=== PATIENT | male | born 1955 | race Caucasian/White ===

== ENCOUNTER 2016-05-13 22:29 | Emergency (ER) | payer MEDICAID ==
[~2016-05-13] VITALS: Ht 172.7 cm; Wt 113.4 kg
[~2016-05-13 22:29] MED LIST: ALBU4TAB4; AZIT250T
[2016-05-13 22:30] VITALS: BP 161/97; PULSE 85; RESP 18; TEMP 97.5; O2SAT 98
--- NOTE | 2016-05-13 22:50 | NUR ---
Pt ambulatory to bed 8. Report given to SUHAS Dobbs.
--- NOTE | 2016-05-13 23:00 | NUR ---
Pt states that he has not been able to urinate for three hours. Pt has 10/10 abd pain with guarding. Will continue to monitor. No distress noted.
--- NOTE | 2016-05-13 23:00 | NUR ---
ER Dr. Patino at bedside examining patient.
--- NOTE | 2016-05-13 23:20 | NUR ---
# 16 FR roman catheter with use of sterile technique. Immediate return of 300 ml yellow urine noted. Urine sample collected and sent to lab. Pt tolerated procedure well.
[2016-05-13 23:29] LABS: BILIRUBIN,URINE NEGATIVE (NEGATIVE); BLOOD, URINE 1+ (NEGATIVE); CLARITY/URINE HAZY (CLEAR); COLOR,URINE YELLOW (YELLOW); GLUCOSE,URINE NEGATIVE (NEGATIVE); KETONES,URINE NEGATIVE (NEGATIVE); LEUKOCYTE ESTERASE ,URINE 2+ (NEGATIVE); NITRITE, URINE NEGATIVE (NEGATIVE); PROTEIN URINE NEGATIVE (NEGATIVE); UROBILINOGEN,URINE 0.2 (0.2-1.0)
[2016-05-13 23:52] LABS: BACTERIA,URINE FEW /HPF (None Seen); MUCUS,URINE None Seen /LPF (None Seen); WBC,URINE 20-50 /HPF (0-3)
[2016-05-13 23:54] LABS: YEAST,URINE Few /HPF (None Seen)
[2016-05-14] MEDS ORDERED: NITROFURANTOIN MONOHYD/M-CRYST 100 MG CAPSULE PO SCH (00:15)
[2016-05-14 00:44] VITALS: BP 140/97; PULSE 70; RESP 18; TEMP 97.5; O2SAT 98
--- NOTE | 2016-05-14 00:44 | NUR ---
Patient given written and verbal discharge instructions and verbalizes understanding. ER MD discussed with patient the results and treatment provided. Patient in stable condition. ID arm band removed. Rx of Macrobid given. Patient educated on pain management and to follow up with PMD. Pain Scale 0/10. Opportunity for questions provided and answered.
== END 2016-05-14 00:44 | disposition home or self-care (01) ==
LOC: SED 22:29
DX: R33.9 Retention of urine, unspecified (principal); N40.0 Benign prostatic hyperplasia without lower urinary tract symptoms
CPT/HCPCS: 81000-TC; 87086; 99284

== ENCOUNTER 2016-05-24 01:56 | Emergency (ER) | payer MEDICAID ==
[~2016-05-24] VITALS: Ht 170.2 cm; Wt 90.7 kg
[2016-05-24 02:00] VITALS: BP 181/93; PULSE 90; RESP 24; TEMP 98; O2SAT 98
--- NOTE | 2016-05-24 02:04 | NUR ---
Placed in room 05 . To gown for exam. Side rails up. Report given to SUHAS Hernandez.
--- NOTE | 2016-05-24 02:05 | NUR ---
PT IS AOX4, C/O HYPOGASTRIC PAIN SECONDARY TO URINARY RETENTION (BARNETT CATHETER). PAIN SCALE 10/10. (+) BURNING PAIN.
--- NOTE | 2016-05-24 02:06 | NUR ---
ER Dr.DE SCHMIDT at bedside examining patient.
--- NOTE | 2016-05-24 02:15 | NUR ---
# 16 FR Gerard catheter with use of sterile technique. Immediate return of 500 cc LIGHT NIKOLAY urine noted. Bedside drainage bag placed below level of bladder. Urine sample collected and sent to lab. Pt tolerated procedure WELL.
[2016-05-24 02:43] LABS: BILIRUBIN,URINE NEGATIVE (NEGATIVE); BLOOD, URINE 1+ (NEGATIVE); CLARITY/URINE HAZY (CLEAR); COLOR,URINE YELLOW (YELLOW); GLUCOSE,URINE 2+ (NEGATIVE); KETONES,URINE NEGATIVE (NEGATIVE); LEUKOCYTE ESTERASE ,URINE 3+ (NEGATIVE); NITRITE, URINE NEGATIVE (NEGATIVE); PROTEIN URINE NEGATIVE (NEGATIVE); UROBILINOGEN,URINE 0.2 (0.2-1.0)
[2016-05-24 02:57] LABS: BACTERIA,URINE MODERATE /HPF (None Seen); WBC,URINE >100 /HPF (0-3)
[2016-05-24 03:30] VITALS: BP 142/81; PULSE 86; RESP 18; TEMP 98; O2SAT 98
--- NOTE | 2016-05-24 03:30 | NUR ---
Patient given written and verbal discharge instructions and verbalizes understanding. ER MD discussed with patient the results and treatment provided. Patient in stable condition. ID arm band removed. Rx of BACTRIM DS given. Patient educated on pain management and to follow up with PMD. Pain Scale 0/10. Opportunity for questions provided and answered.
--- NOTE | 2016-05-26 11:32 | NUR ---
RECEIVED FINAL URINE CULTURE RESULTS, PT WAS GIVEN ANTIBIOTICS IN ER THAT PT IS SENSITIVE TO, NO FURTHER ACTIONS NEEDED
== END 2016-05-24 03:30 | disposition home or self-care (01) ==
LOC: SED 01:56
DX: N40.1 Benign prostatic hyperplasia with lower urinary tract symptoms (principal); R33.9 Retention of urine, unspecified
CPT/HCPCS: 81000-TC; 87086; 87186-TC; 99284

== ENCOUNTER 2016-05-25 23:13 | Emergency (ER) | payer MEDICAID ==
[~2016-05-25] VITALS: Ht 170.2 cm; Wt 97.5 kg
[2016-05-25 23:13] VITALS: BP 132/67; PULSE 83; RESP 20; TEMP 98.1; O2SAT 98
--- NOTE | 2016-05-25 23:37 | NUR ---
Patient to ER bed 1 to gown for evaluation. Side rails up. Report given to JULES DAI.
--- NOTE | 2016-05-25 23:45 | NUR ---
Patient to ER C/O rash on hoth hands, worse between fingers and going up both arms. C/O severe pruritus. Abrasions on both arms and hands. AAOx4, unlabored breathing, no signs of acute distress.
--- NOTE | 2016-05-25 23:58 | NUR ---
ER MD Ware at bedside for evaluation
--- NOTE | 2016-05-26 00:10 | NUR ---
# 22 gauge angiocath placed to right forearm. Use of asceptic technique. Opsite placed over site. Blood return noted. Flushed with 10 cc of normal saline. No evidence of infiltration noted. Patient tolerated well.
[2016-05-26] MEDS ORDERED: DIPHENHYDRAMINE INJ 50 MG/ML VIAL IVP ONE (00:15)
[2016-05-26] MEDS ORDERED: methylPREDNISolone SOD SUCC/PF 62.5 MG/ML VIAL IVP ONE (00:15)
[2016-05-26 01:21] VITALS: BP 129/72; PULSE 81; RESP 17; TEMP 98.2; O2SAT 99
--- NOTE | 2016-05-26 01:21 | NUR ---
Patient given written and verbal discharge instructions and verbalizes understanding. ER MD Ware discussed with patient the results and treatment provided. Patient in stable condition. ID arm band removed. IV catheter removed intact and dressing applied, no active bleeding. Rx of prednisone given. Patient educated on pain management and to follow up with PMD. Pain Scale 0/10. Opportunity for questions provided and answered.
== END 2016-05-26 01:21 | disposition home or self-care (01) ==
LOC: SED 23:13
DX: L50.9 Urticaria, unspecified (principal); N40.0 Benign prostatic hyperplasia without lower urinary tract symptoms
CPT/HCPCS: 96374; 96375; 99284; J1200; J2930

== ENCOUNTER 2016-08-12 19:29 | Emergency (ER) | payer MEDICAID ==
[~2016-08-12] VITALS: Ht 162.6 cm; Wt 108.9 kg
[2016-08-12 19:57] VITALS: BP 163/100; PULSE 98; RESP 20; TEMP 98.3; O2SAT 98
--- NOTE | 2016-08-12 20:00 | NUR ---
Patient to ER bed 07 to gown for evaluation. Side rails up.
--- NOTE | 2016-08-12 20:00 | NUR ---
ED MD Davila at bedside examining pt.
--- NOTE | 2016-08-12 20:05 | NUR ---
Pt came to ED accompanied by . Pt is ambulatory, A/O x4. Pt states that he "had an indwelling cathether that came out earlier today and he hasn't urinated in 7 hours." Pt c/o discomfort d/t not being able to urinate. c/o pain 9/10 in lower abdomen. Denies cp, sob, n/v/d.
[2016-08-12 20:11] LABS: BASOPHILS % (AUTO) 0.4 % (0.0-2.0); EOSINOPHILS # (AUTO) 0.2 K/uL (0.0-0.4); EOSINOPHILS % (AUTO) 3.1 % (0.0-4.0); HEMATOCRIT 45.8 % (36-54); HEMOGLOBIN 14.9 g/dL (14.0-18.0); LYMPHOCYTES # (AUTO) 2.4 K/uL (1.0-5.5); LYMPHOCYTES % (AUTO) 36.9 % (20.5-51.5); MEAN CORPUSCULAR HEMOGLOBIN 27 pg (27-31); MEAN CORPUSCULAR HGB CONC 33 % (32-36); MEAN CORPUSCULAR VOLUME 84 fL (79.0-98.0); MONOCYTES # (AUTO) 0.8 K/uL (0.0-1.0); MONOCYTES % (AUTO) 12.4 % (1.7-9.3); NEUTROPHILS # (AUTO) 3.2 K/uL (1.8-7.7); NEUTROPHILS % (AUTO) 47.2 % (40.0-70.0); PLATELET COUNT (AUTO) 176 K/uL (130-430); RED BLOOD CELL COUNT(AUTO) 5.47 MIL/uL (4.2-6.2); RED CELL DISTRIBUTION WIDTH 12.6 % (9.0-15.0); WHITE BLOOD COUNT (AUTO) 6.6 K/uL (4.8-10.8)
--- NOTE | 2016-08-12 20:20 | NUR ---
# 16 FR Gerard catheter with use of sterile technique. Immediate return of 100 cc clear, yellow urine noted. Bedside drainage bag placed below level of bladder. Urine sample collected and sent to lab. Pt tolerated procedure well.
[2016-08-12 20:27] LABS: BILIRUBIN,URINE NEGATIVE (NEGATIVE); BLOOD, URINE 1+ (NEGATIVE); CLARITY/URINE SL HAZY (CLEAR); COLOR,URINE YELLOW (YELLOW); GLUCOSE,URINE 3+ (NEGATIVE); KETONES,URINE TRACE (NEGATIVE); LEUKOCYTE ESTERASE ,URINE NEGATIVE (NEGATIVE); NITRITE, URINE NEGATIVE (NEGATIVE); PH,URINE 5.5 (5.0-8.0); PROTEIN URINE NEGATIVE (NEGATIVE); UROBILINOGEN,URINE 0.2 (0.2-1.0)
[2016-08-12 20:34] LABS: CALCIUM 9.6 mg/dL (8.4-11.0); CREATININE 1.17 mg/dL (0.55-1.30); POTASSIUM 4.6 mmol/L (3.5-5.1)
[2016-08-12 20:39] LABS: ALBUMIN 4.4 g/dL (3.4-4.8); TOTAL BILIRUBIN 0.4 mg/dL (0.0-1.0)
[2016-08-12 21:03] LABS: BACTERIA,URINE MODERATE /HPF (None Seen); MUCUS,URINE None Seen /LPF (None Seen)
[2016-08-12 21:16] VITALS: BP 160/98; PULSE 95; RESP 20; TEMP 98.6; O2SAT 99
--- NOTE | 2016-08-12 21:16 | NUR ---
Patient given written and verbal discharge instructions and verbalizes understanding. ER MD discussed with patient the results and treatment provided. Patient in stable condition. ID arm band removed. Rx of Keflex and Tylenol given. Patient educated on pain management and to follow up with PMD. Pain Scale 2/10. Opportunity for questions provided and answered.
[2016-08-12] MEDS ORDERED: KETOROLAC TROMETHAMINE 60 MG/2 ML VIAL IM ONE ×2 (21:30→21:43)
--- NOTE | 2016-08-15 11:38 | NUR ---
RECEIVED FINAL URINE CULTURE, SHOWN TO DR RAYMOND, PT RECEIVED ANTIBIOTICS THAT HE IS SENSITIVE TO. NO FURTHER ACTIONS NEEDED.
== END 2016-08-12 21:16 | disposition home or self-care (01) ==
LOC: SED 19:29
DX: N39.0 Urinary tract infection, site not specified (principal); N40.0 Benign prostatic hyperplasia without lower urinary tract symptoms
CPT/HCPCS: 36415; 51702; 80053; 81000; 85025; 87086; 96372; 99284; J1885; 87186-TC

== ENCOUNTER 2016-10-13 12:21 | Emergency (ER) | payer MEDICAID ==
[~2016-10-13] VITALS: Ht 172.7 cm; Wt 100.2 kg
--- NOTE | 2016-10-13 13:09 | NUR ---
Patient to ER bed 04 to gown for evaluation. Side rails up. Report given to Eros
--- NOTE | 2016-10-13 13:10 | NUR ---
Dr Moore at bedside to evaluate patient.
--- NOTE | 2016-10-13 13:12 | NUR ---
Patient,awake, alert and oriented x 4, brought in self from home for urinary retension since 1999 yesterday. Patient presents as groaning, facial grimacing complaining of urinary retension and lower back pain since last night, 1999. Patient had roman catheter in place upon arrival. Old roman removed and discontinued. No urine in roman bag noted. No other complaints/injuries noted.
--- NOTE | 2016-10-13 13:13 | NUR ---
# 16 FR Roman catheter with use of sterile technique. Immediate return of 400cc clear, yellow urine noted. Bedside drainage bag placed below level of bladder. Urine sample collected and sent to lab. Pt tolerated procedure well. Patient arrived with roman in place, changed due to standard of practice prior to admission. Patient unable to toilet self.
[2016-10-13 13:14] VITALS: BP_SYST 186
--- NOTE | 2016-10-13 13:20 | NUR ---
Patient states "my pain is gone after you put in the new roman." Patient sitting in bed comfortably. No signs of distress, vss.
[2016-10-13 13:26] LABS: BASOPHILS # (AUTO) 0.1 K/uL (0.0-0.2); BASOPHILS % (AUTO) 0.9 % (0.0-2.0); EOSINOPHILS # (AUTO) 0.3 K/uL (0.0-0.4); EOSINOPHILS % (AUTO) 3.5 % (0.0-4.0); HEMATOCRIT 47.3 % (36-54); HEMOGLOBIN 15.4 g/dL (14.0-18.0); LYMPHOCYTES # (AUTO) 2.2 K/uL (1.0-5.5); LYMPHOCYTES % (AUTO) 28.7 % (20.5-51.5); MEAN CORPUSCULAR HEMOGLOBIN 27 pg (27-31); MEAN CORPUSCULAR HGB CONC 33 % (32-36); MEAN CORPUSCULAR VOLUME 83 fL (79.0-98.0); MONOCYTES # (AUTO) 0.6 K/uL (0.0-1.0); MONOCYTES % (AUTO) 8.3 % (1.7-9.3); NEUTROPHILS # (AUTO) 4.6 K/uL (1.8-7.7); NEUTROPHILS % (AUTO) 58.6 % (40.0-70.0); PLATELET COUNT (AUTO) 212 K/uL (130-430); RED BLOOD CELL COUNT(AUTO) 5.69 MIL/uL (4.2-6.2); RED CELL DISTRIBUTION WIDTH 12.9 % (9.0-15.0); WHITE BLOOD COUNT (AUTO) 7.8 K/uL (4.8-10.8)
[2016-10-13 13:45] LABS: CREATININE 1.05 mg/dL (0.55-1.30); POTASSIUM 4.1 mmol/L (3.5-5.1)
[2016-10-13 13:47] LABS: PROTHROMBIN TIME 10.6 SECS (9.5-12.5)
[2016-10-13 13:49] LABS: BILIRUBIN,URINE NEGATIVE (NEGATIVE); BLOOD, URINE 2+ (NEGATIVE); CLARITY/URINE SL HAZY (CLEAR); COLOR,URINE YELLOW (YELLOW); GLUCOSE,URINE 3+ (NEGATIVE); KETONES,URINE NEGATIVE (NEGATIVE); LEUKOCYTE ESTERASE ,URINE NEGATIVE (NEGATIVE); NITRITE, URINE POSITIVE (NEGATIVE); PH,URINE 5.5 (5.0-8.0); PROTEIN URINE NEGATIVE (NEGATIVE); UROBILINOGEN,URINE 0.2 (0.2-1.0)
[2016-10-13 14:00] LABS: BACTERIA,URINE RARE /HPF (None Seen); MUCUS,URINE 1+ /LPF (None Seen); WBC,URINE NONE SEEN /HPF (0-3)
--- NOTE | 2016-10-13 14:30 | NUR ---
Patient resting quietly. No acute distress noted. Vital signs within normal range.
--- NOTE | 2016-10-13 15:00 | NUR ---
Roman catheter drainage system, changed to leg bag. Patient tolerated procedure well, roman catheter draining clear yellow urine. Patient to be discharged home-aftercare instructions given by previous RN. Patient changing clothes without difficulty
[2016-10-13 15:30] VITALS: BP_SYST 128
--- NOTE | 2016-10-13 15:30 | NUR ---
Patient given written and verbal discharge instructions and verbalizes understanding. ER MD discussed with patient the results and treatment provided. Patient in stable condition. ID arm band removed. IV catheter removed intact and dressing applied, no active bleeding. Rx of Cipro given. Patient educated on pain management and to follow up with PMD. Pain Scale 0/10. Opportunity for questions provided and answered.
== END 2016-10-13 15:30 | disposition home or self-care (01) ==
LOC: SED 12:21
DX: R33.9 Retention of urine, unspecified (principal); N39.0 Urinary tract infection, site not specified; N40.0 Benign prostatic hyperplasia without lower urinary tract symptoms
CPT/HCPCS: 36415; 80048; 81000-TC; 85025; 85610-TC; 85730-TC; 99284

== ENCOUNTER 2017-06-04 13:08 | Emergency (ER) | payer MEDICAID ==
[~2017-06-04] VITALS: Ht 172.7 cm; Wt 95.3 kg
[2017-06-04 13:16] VITALS: BP_SYST 129
[2017-06-04 14:20] VITALS: BP_SYST 100
== END 2017-06-04 14:20 | disposition home or self-care (01) ==
LOC: SED 13:08
DX: N13.9 Obstructive and reflux uropathy, unspecified (principal); N40.0 Benign prostatic hyperplasia without lower urinary tract symptoms; R03.0 Elevated blood-pressure reading, without diagnosis of hypertension
CPT/HCPCS: 99284

== ENCOUNTER 2017-07-16 08:18 | Emergency (ER) | payer MEDICAID ==
[~2017-07-16] VITALS: Ht 172.7 cm; Wt 95.3 kg
[2017-07-16 08:38] VITALS: BP_SYST 128
[2017-07-16 09:24] LABS: BILIRUBIN,URINE NEGATIVE (NEGATIVE); BLOOD, URINE 2+ (NEGATIVE); CLARITY/URINE CLEAR (CLEAR); COLOR,URINE YELLOW (YELLOW); GLUCOSE,URINE NEGATIVE (NEGATIVE); KETONES,URINE NEGATIVE (NEGATIVE); LEUKOCYTE ESTERASE ,URINE 2+ (NEGATIVE); NITRITE, URINE POSITIVE (NEGATIVE); PROTEIN URINE NEGATIVE (NEGATIVE); UROBILINOGEN,URINE 0.2 (0.2-1.0)
[2017-07-16 09:35] LABS: BACTERIA,URINE MODERATE /HPF (None Seen); MUCUS,URINE None Seen /LPF (None Seen); RBC,URINE 0-3 /HPF (0-3)
[2017-07-16 09:36] VITALS: BP_SYST 125
== END 2017-07-16 09:36 | disposition home or self-care (01) ==
LOC: SED 08:18
DX: T83.038A Leakage of other urinary catheter, initial encounter (principal); N39.0 Urinary tract infection, site not specified; N40.0 Benign prostatic hyperplasia without lower urinary tract symptoms
CPT/HCPCS: 81000-TC; 87086; 87186-TC; 99284

== ENCOUNTER 2018-05-19 05:49 | Emergency (ER) | payer MEDICAID ==
[~2018-05-19] VITALS: Ht 172.7 cm; Wt 95.3 kg
[2018-05-19] MEDS ORDERED: KETOROLAC TROMETHAMINE 60 MG/2 ML VIAL IM ONE (06:15)
== END 2018-05-19 07:09 | disposition home or self-care (01) ==
LOC: SED 05:49
DX: M25.511 Pain in right shoulder (principal); M25.521 Pain in right elbow; M79.641 Pain in right hand; E11.9 Type 2 diabetes mellitus without complications; N40.0 Benign prostatic hyperplasia without lower urinary tract symptoms; Z79.899 Other long term (current) drug therapy; X50.0XXA Overexertion from strenuous movement or load, initial encounter; Y93.89 Activity, other specified; Y92.89 Other specified places as the place of occurrence of the external cause; Y99.8 Other external cause status
CPT/HCPCS: 73030; 73080; 73130; 96372; 99283; J1885

== ENCOUNTER 2018-12-13 17:54 | Emergency (ER) | payer MEDICAID, OTHER ==
[~2018-12-13] VITALS: Ht 172.7 cm; Wt 92.1 kg
[2018-12-13 18:01] VITALS: BP_SYST 164
--- NOTE | 2018-12-13 18:01 | NUR ---
Patient to ER bed 2 to gown for evaluation. Side rails up. Report given to SUHAS Ferrera.
--- NOTE | 2018-12-13 18:07 | NUR ---
Patient is awake, alert, and oriented x4. Patient is complaining of abdominal pain 10/10 radiating to the back. Visible umbilical hernia noted. Patient states he was supposed to have surgery years ago, but did not do it to lack of insurance.
--- NOTE | 2018-12-13 18:27 | NUR ---
SNEHA Anderson at bedside examining patient.
[2018-12-13] MEDS ORDERED: MORPHINE 4 MG/ML INJ. SYRINGE IVP ONE (18:30)
--- NOTE | 2018-12-13 19:05 | NUR ---
Report given to SUHAS Louise for continuation of care.
[2018-12-13 20:18] VITALS: BP_SYST 145
--- NOTE | 2018-12-13 20:18 | NUR ---
Patient given written and verbal discharge instructions and verbalizes understanding. ER MD discussed with patient the results and treatment provided. Patient in stable condition. ID arm band removed. IV catheter removed intact and dressing applied, no active bleeding. Rx of Mabel Cordova given. Patient educated on pain management and to follow up with PMD. Pain Scale 0/10. Opportunity for questions provided and answered. Medication side effect fact sheet provided.
== END 2018-12-13 20:18 | disposition home or self-care (01) ==
LOC: SED 19:54
DX: K42.9 Umbilical hernia without obstruction or gangrene (principal); R05 Cough; E11.9 Type 2 diabetes mellitus without complications; N40.0 Benign prostatic hyperplasia without lower urinary tract symptoms
CPT/HCPCS: 74176; 96374; 99284; J2270

== ENCOUNTER 2023-09-05 18:06 | Emergency (ER) | payer OTHER ==
[~2023-09-05] VITALS: Ht 172.7 cm; Wt 83.9 kg
[~2023-09-05 18:06] MED LIST changes: -AZIT250T; +ZIT250
[2023-09-05 18:14] VITALS: BP_SYST 124; PULSE 76; RESP 17; TEMP 97.3; O2SAT 97
[2023-09-05] MEDS: IBUPROFEN 600 MG TABLET PO ONE (18:32)
[2023-09-05] MEDS ORDERED: METH-634 PO (19:47)
[2023-09-05] MEDS ORDERED: IBUP-1968 PO (19:47)
[2023-09-05 19:58] VITALS: BP_SYST 93; PULSE 72; RESP 18; TEMP 98.7; O2SAT 99
== END 2023-09-05 19:55 | disposition home or self-care (01) ==
LOC: SED 18:06
DX: S16.1XXA Strain of muscle, fascia and tendon at neck level, initial encounter (principal); S39.012A Strain of muscle, fascia and tendon of lower back, initial encounter; E11.9 Type 2 diabetes mellitus without complications; Z79.2 Long term (current) use of antibiotics; Z79.899 Other long term (current) drug therapy; V89.2XXA Person injured in unspecified motor-vehicle accident, traffic, initial encounter; Y93.89 Activity, other specified; Y92.89 Other specified places as the place of occurrence of the external cause; Y99.8 Other external cause status
CPT/HCPCS: 72040; 72100; 99284